=== PATIENT | female | born 1985 | race Caucasian/White ===

== ENCOUNTER 2020-11-11 14:54 | Emergency (ER) | payer OTHER, SELFPAY ==
[2020-11-11 15:01] VITALS: BP 116/83; PULSE 84; RESP 20; TEMP 37.1; O2SAT 100
--- NOTE | 2020-11-11 15:20 | ED.GENADULT ---
HPI - General Adult General Chief complaint: Unspecified Stated complaint: body aches Time Seen by Provider: 11/11/20 15:07 Source: patient History of Present Illness HPI narrative: Patient is a 35 y/o female complaining of generalized body ache starting about 4:00 PM yesterday. She rates her pain as 8/10. She took NyQuil, which helped somewhat temporarily. She denies any fever, cough or SOB. Related Data Home Medications Medication Instructions Recorded Confirmed albuterol sulfate 2 puff INHALATION PRN PRN 08/26/19 11/11/20 Allergies Allergy/AdvReac Type Severity Reaction Status Date / Time ENVIRONMENTAL ALLERGENS AdvReac Unknown UNKNOWN Uncoded 11/11/20 15:05 Review of Systems Constitutional: Constitutional: Denies chills, Denies fever(s), Denies headache(s) and Denies weakness Eyes: Eyes: Denies blurry vision ENT: Denies headache(s) and Denies neck pain Cardiovascular: Cardiovascular: Denies chest pain and Denies dyspnea Respiratory: Respiratory: Denies cough and Denies dyspnea Gastrointestinal: Gastrointestinal: Denies abdominal pain, Denies diarrhea, Denies nausea and Denies vomiting Genitourinary: Genitourinary: Denies hematuria and Denies dysuria Musculoskeletal: Musculoskeletal: Reports as per HPI, Denies back pain, Reports myalgias and Denies neck pain Neurologic: Denies headache(s) and Denies weakness PMFSH Social History Social History Alcohol intake: never Gender identity (if verbalized by the patient): Female Exam Const: General: no acute distress and well developed Orientation/consciousness: oriented to person, oriented to place, oriented to time and patient oriented x3 HENMT: Head: normocephalic Ears: external ears normal General nose exam: Normal external nose present Eyes: General: appearance normal, both eyes and all related structures Conjunctivae: conjunctivae normal Neck: Neck: normal visual inspection and full ROM Chest: Chest palpation & inspection: normal inspection of the chest and no tenderness Resp: Effort & Inspection: normal respiratory effort Auscultation: clear to auscultation bilaterally Cardio: Rate: regular rate Rhythm: regular rhythm GI: GI Palp: No abdominal tenderness and Yes Soft to palpation Skin: General skin exam: normal color and turgor normal Neuro: General: oriented to person, oriented to place, oriented to time and patient oriented x3 Cognition (Neuro): normal cognition Extrem: General: normal to inspection, full ROM and no pedal edema Psych: Appearance: grossly normal Mental Status: mental status grossly normal Affect: normal affect Course Vital Signs Vital signs: Vital Signs Temperature 37.1 C 11/11/20 15:01 Pulse Rate 84 11/11/20 15:01 Respiratory Rate 20 11/11/20 15:01 Blood Pressure 116/83 11/11/20 15:01 Pulse Oximetry 100 11/11/20 15:01 Temperature 37.1 C 11/11/20 15:01 Pulse Rate 78 11/11/20 16:22 Respiratory Rate 20 11/11/20 16:22 Blood Pressure 112/88 11/11/20 16:22 Pulse Oximetry 99 11/11/20 16:22 Medical Decision Making Vital Signs Vital Signs: Vital Signs Temperature 37.1 C 11/11/20 15:01 Pulse Rate 84 11/11/20 15:01 Respiratory Rate 20 11/11/20 15:01 Blood Pressure 116/83 11/11/20 15:01 Pulse Oximetry 100 11/11/20 15:01 Temperature 37.1 C 11/11/20 15:01 Pulse Rate 78 11/11/20 16:22 Respiratory Rate 20 11/11/20 16:22 Blood Pressure 112/88 11/11/20 16:22 Pulse Oximetry 99 11/11/20 16:22 Lab Data Result diagrams: 11/11/20 15:27 11/11/20 15:27 Labs: Lab Results 11/11/20 11/11/20 11/11/20 Range/Units 15:27 15:27 15:37 WBC 1.9 L (4.5-10.0) K/mm3 RBC 4.57 (4.2-5.4) M/mm3 Hgb 14.1 (12.0-15.0) g/dL Hct 42.2 (37.0-47.0) % MCV 92.3 (80-100) fl MCH 30.9 (26-34) pg MCHC 33.4 (32-36) g/dl RDW 12.3 (11.5-14.5) %
[2020-11-11 15:37] LABS: Basophils Percent Auto 0.5 % (0.2-1.2); Eosinophils Absolute Auto 0.1 K/mm3 (0-0.3); Eosinophils Percent Auto 3.6 % (0-4.4); Hematocrit 42.2 % (37.0-47.0); Hemoglobin 14.1 g/dL (12.0-15.0); Lymphocytes Absolute Auto 0.96 K/mm3 (0.9-3.2); Lymphocytes Percent Auto 49.5 % (18.3-44.2); Mean Corpuscular HGB Conc 33.4 g/dl (32-36); Mean Corpuscular Hemoglobin 30.9 pg (26-34); Mean Corpuscular Volume 92.3 fl (80-100); Mean Platelet Volume 10.2 fl (7.4-10.4); Monocytes Absolute Auto 0.4 K/mm3 (0.1-0.6); Monocytes Percent Auto 20.1 % (2.6-8.5); Neutrophils Absolute Auto 0.5 K/mm3 (1.3-6.7); Neutrophils Percent Auto 26.3 % (45.5-73.1); Platelet Count Result 158 k/mm3 (150-375); Red Blood Count 4.57 M/mm3 (4.2-5.4); Red Cell Distribution Width 12.3 % (11.5-14.5)
[2020-11-11 15:42] LABS: White Blood Count 1.9 K/mm3 (4.5-10.0)
[2020-11-11 15:50] LABS: Add Urine Microscopic? YES; Appearance Urine Clear (Clear); Bacteria Urine Trace /hpf; Bilirubin Urine Negative (Negative); Blood Urine Negative (Negative); Color Urine Yellow (Yellow); Glucose Urine UA Negative (Negative); Ketones Urine Negative (Negative); Leukocyte Esterase Ur Negative LEU/UL (Negative); Mucus Urine Rare /lpf; Nitrate Urine Negative (Negative); Protein Urine Negative (Negative); RBC Urine 0-2 /hpf (0-2); Specific Grav Ur 1.016 (1.001-1.035); Squamous Epithelial Cell Urine Many /hpf (Few); WBC Urine 0-3 /hpf
[2020-11-11 15:53] LABS: Alanine Aminotransferase 23 U/L (4-35); Albumin Level 4.4 g/dL (3.5-5.1); Alkaline Phosphatase 55 U/L (38-126); Anion Gap 5 mmol/L (8-16); Aspartate Amino Transferase 28 U/L (14-36); Bilirubin,Total 0.5 mg/dL (0.2-1.3); Blood Urea Nitrogen 11 mg/dL (7-17); Carbon Dioxide 28 mmol/L (22-30); Chloride 108 mmol/L (98-107); Creatine Kinase 80 U/L (30-135); Estimated CRCL calculation 88 ml/min; Estimated Glomerular Filt Rate > 60; Glucose 111 mg/dL (65-105); Potassium 4.3 mmol/L (3.4-5.0); Sodium 141 mmol/L (137-145)
[2020-11-11 16:22] VITALS: BP 112/88; PULSE 78; RESP 20; O2SAT 99
[2020-11-12 16:31] LABS: SARS-CoV-2 RNA PCR Positive
== END 2020-11-11 16:23 | disposition home or self-care (01) ==
PROVIDERS: Emergency Provider Emergency Medicine; PCP Family Medicine
DX: U07.1 COVID-19 (principal); M79.10 Myalgia, unspecified site
CPT/HCPCS: 36415; 80053; 81001; 81025; 82550; 85025; 87804; 99283; C9803; U0003; U0005